=== PATIENT | female | born 2000 | race Caucasian/White ===

== ENCOUNTER 2018-09-18 03:35 | Inpatient (IN) | payer OTHER ==
[~2018-09-18] VITALS: Ht 149.9 cm; Wt 50.3 kg
[~2018-09-18 03:35] MED LIST: CEFADROXIL500 MG PO
[2018-09-18] MEDS ORDERED: PRENATAL TABLE1 EAC1 PO (04:17)
[2018-09-20] MEDS ORDERED: KEFLEX500 MG PO (19:58)
== END 2018-09-20 20:24 | DRG 832 ==
LOC: OBS/DEL 03:35 → LDR 09:04 → OB/GYN 09:04
PROVIDERS: ADMIT Obstetrics & Gynecology
PROC: 4A1HXCZ Monitoring of Products of Conception, Cardiac Rate, External Approach (ICD-10-PCS; principal; 2018-09-18)
PROC: BY4FZZZ Ultrasonography of Third Trimester, Single Fetus (ICD-10-PCS; 2018-09-18)
PROC: BU4CZZZ Ultrasonography of Uterus and Ovaries (ICD-10-PCS; 2018-09-18)
DX: O60.03 Preterm labor without delivery, third trimester (principal); O23.43 Unspecified infection of urinary tract in pregnancy, third trimester; Z34.03 Encounter for supervision of normal first pregnancy, third trimester

== ENCOUNTER 2018-11-07 11:29 | Inpatient (IN) | payer OTHER ==
[~2018-11-07] VITALS: Ht 149.9 cm; Wt 54.9 kg
[~2018-11-07 11:29] MED LIST changes: +KEFLEX500 MG PO; +PRENATAL TABLE1 EAC1 PO
[2018-11-22] MEDS ORDERED: PRENATAL TABLE1 EAC1 PO (09:05)
[2018-11-24] MEDS ORDERED: PREPLUS CA-FE1 EACH PO (11:40)
[2018-11-24] MEDS ORDERED: Ferro-Plex CAPLET PO (11:40)
[2018-11-24] MEDS ORDERED: ACETAMINOPHEN500 M1 PO (11:41)
== END 2018-11-24 12:14 | disposition home or self-care (01) | DRG 807 ==
LOC: LDR 11-21 18:36 → OB/GYN 11-22 23:05
PROVIDERS: ADMIT Obstetrics & Gynecology
PROC: 10E0XZZ Delivery of Products of Conception, External Approach (ICD-10-PCS; principal; 2018-11-21)
PROC: 0HQ9XZZ Repair Perineum Skin, External Approach (ICD-10-PCS; 2018-11-21)
PROC: 3E0P7VZ Introduction of Hormone into Female Reproductive, Via Natural or Artificial Opening (ICD-10-PCS; 2018-11-21)
PROC: 3E033VJ Introduction of Other Hormone into Peripheral Vein, Percutaneous Approach (ICD-10-PCS; 2018-11-21)
PROC: 4A1HXCZ Monitoring of Products of Conception, Cardiac Rate, External Approach (ICD-10-PCS; 2018-11-21)
DX: O70.0 First degree perineal laceration during delivery (principal); Z37.0 Single live birth; Z3A.39 39 weeks gestation of pregnancy

== ENCOUNTER → 2019-07-03 | Outpatient (CLI) | payer OTHER ==
[~2019-07-03] MED LIST changes: +ACETAMINOPHEN500 M1 PO; +Ferro-Plex CAPLET PO; +PREPLUS CA-FE1 EACH PO
== END | disposition home or self-care (01) ==
LOC: PRENATAL 11:00
DX: O35.3XX1 Maternal care for (suspected) damage to fetus from viral disease in mother, fetus 1 (principal)

== ENCOUNTER → 2019-10-09 | Outpatient (CLI) | payer OTHER | END | disposition home or self-care (01) | LOC: PRENATAL 08:37 | DX: O26.843 Uterine size-date discrepancy, third trimester (principal); O99.013 Anemia complicating pregnancy, third trimester; O35.0XX1 Maternal care for (suspected) central nervous system malformation in fetus, fetus 1; O36.5991 Maternal care for other known or suspected poor fetal growth, unspecified trimester, fetus 1 ==

== ENCOUNTER → 2019-10-16 | Outpatient (CLI) | payer OTHER | END | disposition home or self-care (01) | LOC: PRENATAL 09:00 | DX: O35.0XX1 Maternal care for (suspected) central nervous system malformation in fetus, fetus 1 (principal); O36.5991 Maternal care for other known or suspected poor fetal growth, unspecified trimester, fetus 1 ==

== ENCOUNTER → 2019-10-23 | Outpatient (CLI) | payer OTHER | END | disposition home or self-care (01) | LOC: PRENATAL 08:00 | DX: O36.5931 Maternal care for other known or suspected poor fetal growth, third trimester, fetus 1 (principal); O36.8131 Decreased fetal movements, third trimester, fetus 1; O35.0XX1 Maternal care for (suspected) central nervous system malformation in fetus, fetus 1 ==

== ENCOUNTER 2019-10-29 16:47 | Inpatient (IN) | payer OTHER ==
[~2019-10-29] VITALS: Ht 149.9 cm; Wt 1.8 kg
== END 2019-11-01 09:35 | disposition home or self-care (01) | DRG 807 ==
LOC: LDR 16:47 → OB/GYN 10-30 16:09
PROVIDERS: ADMIT Obstetrics & Gynecology
PROC: 10E0XZZ Delivery of Products of Conception, External Approach (ICD-10-PCS; principal; 2019-10-30)
PROC: 4A1HXFZ Monitoring of Products of Conception, Cardiac Rhythm, External Approach (ICD-10-PCS; 2019-10-30)
PROC: 3E033VJ Introduction of Other Hormone into Peripheral Vein, Percutaneous Approach (ICD-10-PCS; 2019-10-30)
PROC: 3E0P7VZ Introduction of Hormone into Female Reproductive, Via Natural or Artificial Opening (ICD-10-PCS; 2019-10-30)
DX: O36.5930 Maternal care for other known or suspected poor fetal growth, third trimester, not applicable or unspecified (principal); Z37.0 Single live birth; Z3A.36 36 weeks gestation of pregnancy

== ENCOUNTER → 2019-10-29 | Outpatient (CLI) | payer OTHER | END | disposition home or self-care (01) | LOC: PRENATAL 14:30 | DX: O26.843 Uterine size-date discrepancy, third trimester (principal); Z3A.36 36 weeks gestation of pregnancy; O36.5930 Maternal care for other known or suspected poor fetal growth, third trimester, not applicable or unspecified ==